=== PATIENT | male | born 2000 | race Caucasian/White ===

== ENCOUNTER 2019-12-03 16:38 | Emergency (ER) | payer OTHER, BC, SELFPAY ==
[2019-12-03 17:00] VITALS: BP 158/87; PULSE 89; RESP 17; TEMP 37.2; O2SAT 99; BMI 24.4
[2019-12-03 17:30] VITALS: BP 161/99; PULSE 86; O2SAT 99
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
[2019-12-03] MEDS: KETOROLAC 60 MG/2 ML VIAL 30 MG IM (18:24)
--- NOTE | 2019-12-03 18:45 | DI.CT.S_ITS ---
PROCEDURE: CT PEL WO CON INDICATIONS: L rami fracture; possible acetabular involvement TECHNIQUE: Noncontrast 3 mm axial sections acquired through the bony pelvis, with coronal and sagittal reformatting. COMPARISON: [facility], CR, XR HIP W PEL IF DONE LT 2V, 12/03/2019, 17:45. FINDINGS: Image quality: Excellent. Bones: There are comminuted relatively nondisplaced fractures of both the superior and inferior pubic rami on the left. There is a slight offset appearance at the cortical margin of the left superior acetabulum. Soft tissues: Mild fluid is noted surrounding the areas of pubic rami fractures. IMPRESSION: 1. Superior and inferior left pubic rami fractures. 2. Nondisplaced fracture of the lateral most aspect of the superior left acetabulum. Dictated by: Swathi Morgan M.D. on 12/03/2019 at 19:14 Approved by: Swathi Morgan M.D. on 12/03/2019 at 19:16
[2019-12-03 19:14] VITALS: BP 151/77; PULSE 89; O2SAT 100
[2019-12-03] MEDS: HYDROCODONE/ACET 5/325 PREPACK 1 BOTTLE MISC (20:18)
[2019-12-03] MEDS: ONDANSETRON 4 MG ODT PREPACK 1 BOTTLE MISC (20:18)
[2019-12-03 20:23] VITALS: BP 133/83; PULSE 86; RESP 16; O2SAT 99
== END 2019-12-03 20:29 | disposition home or self-care (01) ==
PROVIDERS: Emergency Provider Nurse Practitioner; PCP Pediatrics
DX: S32.592A Other specified fracture of left pubis, initial encounter for closed fracture (principal); S32.402A Unspecified fracture of left acetabulum, initial encounter for closed fracture; W22.8XXA Striking against or struck by other objects, initial encounter; Z86.79 Personal history of other diseases of the circulatory system; R07.89 Other chest pain
CPT/HCPCS: 71046; 72192; 73502; 96372; 99284; J1885